=== PATIENT | male | born 1985 ===

== ENCOUNTER 2024-12-13 09:58 | Emergency (ER) | payer BC, SELFPAY ==
[2024-12-13 10:02] VITALS: BP 144/99
--- NOTE | 2024-12-13 10:30 | ED.GENMED ---
History of Present Illness
General
Chief Complaint: Musculo-Skeletal Complaint
Time Seen by Provider: 12/13/24 10:19
History of Present Illness
History of Present Illness:
39-year-old male with past medical history of hypertension, GERD and anxiety presenting to the ER for evaluation of pain that started spontaneously to the right foot overnight, patient stating the pain is right at the base of the first MTP joint.
He took 2 doses of Advil with no relief and states his pain was worse with ambulating prompting him to come in. He states 2 years ago his primary care provider diagnosed him with possible gout and he cut beer out of his diet. Patient is without
any other concerns.
Past History
Past History
ED Past Medical History: GERD, HTN and Psychiatric
ED Past Surgical History: None
Social History
Tobacco: Non-smoker
Alcohol: None
Drug: None
Personal:
Living: with family
Review of Systems
Review of Systems
All Other Systems: ROS reviewed and negative except as documented in HPI and ROS
Phy Exam
Physical Exam
Physical Exam:
GENERAL: Alert , in no apparent distress
EYE: conjunctiva clear
Head: Normocephalic atraumatic
NECK: Supple,
ENT: mmm.
LUNGS: no acute respiratory distress
NEUROLOGICAL: Alert and oriented
SKIN: Warm and dry, pain, erythema and edema right at the first MTP joint. Extremity is otherwise warm and well-perfused.
MUSCULOSKELETAL: well perfused.
PSYCH: Normal and appropriate interaction.
Scores
Heart Failure Risk
Heart Failure Risk Score: Not Applicable
Heart Score for Chest Pain Patients
STEMI patient?: Not applicable
Withdrawal Assessment of Alcohol
Withdrawal Assessment Completed?: Not applicable
Course
Vital Signs
Initial and Last Documented VS:
Initial Vital Signs
Temp Pulse Resp BP Pulse Ox
98.0 F 80 16 144/99 97
12/13/24 10:02 12/13/24 10:02 12/13/24 10:02 12/13/24 10:02 12/13/24 10:02
Last Documented Vital Signs
Temp Pulse Resp BP Pulse Ox
98.0 F 80 16 144/99 97
12/13/24 10:02 12/13/24 10:02 12/13/24 10:02 12/13/24 10:02 12/13/24 10:31
MDM/Problems Addressed
Differential Diagnosis Includes:
Gout
Cellulitis
Less concern for fracture given no trauma
DVT/SVT
Sprain/contusion
MDM/Problems Addressed:
39-year-old male presented to the ER for pain, erythema and edema to the right great toe. Based off of the presentation and location of symptoms I have high degree of suspicion for gout. Will initiate patient on naproxen and prednisone taper.
Encourage close follow-up with primary care provider. Patient is otherwise aware of return precautions.
Chronic conditions affecting care: Other (Gout)
Acute Exacerbation and/or Progression of Chronic Illness: Other (Gout)
*Pulse Oximetry
SaO2: 97
Oxygen Mode of Delivery: Room air
Patient hypoxic: no
*Critical Care Note
Total Time (30-74mins, 75-104mins- exclusive of procedures): Not Applicable
ED Attending Note
-
Portions of this chart may have been created with voice recognition software.� Occasional wrong word or��sound alike� substitutions may have occurred due to the inherent limitations of voice recognition software.
Discharge Plan
Departure
Patient Disposition: Home (Routine Discharge)
Date of Disposition: 12/13/24
Time of Disposition: 10:38
Patient with high blood pressure during this ER visit?: Yes
Discharge Problem:
Acute gout of right foot
Instructions: Gout - ED (DC)
Prescriptions:
New
naproxen 500 mg tablet
500 mg PO BID 7 Days Qty: 14 0RF
prednisone 10 mg Tablet
See Rx Instructions .ROUTE .COMPLEX Qty: 30 0RF
Rx Instructions:
Take By Mouth:
40 mg daily x3 days, 30 mg daily x3 days,
20 mg daily x3 days, 10 mg daily x3 days.
No Action
omeprazole 20 mg Capsule,Delayed Release(Dr/Ec)
20 mg PO DAILY
hydrochlorothiazide 12.5 mg Tablet
12.5 mg PO DAILY
Multivitamin Gummies 200 mcg Tablet,Chewable
2 tab PO DAILY
Referrals:
UNKNOWN - PT DOES,NOT KNOW [Unknown Provider]
Interventions
Interventions:
*Nursing Disposition Last Done: 12/13/24 10:57
Discharge Date and Time
Discharge Date/Time: 12/13/24 10:59
Print Language: [place]
== END 2024-12-13 10:59 | disposition home or self-care (01) ==
LOC: EMR 09:58
PROVIDERS: EMERGENCY PHYSICIAN Emergency Medicine; FAMILY PHYSICIAN Family Medicine
DX: M10.9 Gout, unspecified (principal); I10 Essential (primary) hypertension; K21.9 Gastro-esophageal reflux disease without esophagitis; F41.9 Anxiety disorder, unspecified
CPT/HCPCS: 99282